=== PATIENT | female | born 1980 | race Caucasian/White ===

== ENCOUNTER 2017-05-16 12:34 | Emergency (ER) | payer OTHER ==
[~2017-05-16] VITALS: Ht 165.1 cm; Wt 181.4 kg
[~2017-05-16 12:34] MED LIST: Veetids 500500 MG PO
== END 2017-05-16 13:39 | disposition home or self-care (01) ==
LOC: ER 12:34
DX: J02.9 Acute pharyngitis, unspecified (principal); F17.200 Nicotine dependence, unspecified, uncomplicated
CPT/HCPCS: 87081; 87147; 87430; 99283; J1100